=== PATIENT | male | born 1990 | race Caucasian/White ===

== ENCOUNTER 2016-08-03 14:55 | Emergency (ER) | payer OTHER ==
[2016-08-03 15:51] VITALS: BP 137/62
--- NOTE | 2016-08-03 17:24 | UC ---
Dental HPI - HPI Summary HPI Summary: DENTAL PAIN X 4 DAYS SECONDARY TO DENTAL FX AND INFECTION. STARTED ON 1300 MG CLINDA BID. SX WORSE. PAIN INTENSE WORSE WITH CHEWING, HOT, COLD, TOUCH - History of Current Complaint Chief Complaint: UCDentalProblem Stated Complaint: TOOTH PAIN Hx Obtained From: Patient Onset/Duration: Gradual Onset, Lasting Days - 4, Still Present Severity: Moderate Pain Intensity: 7 Pain Scale Used: 0-10 Numeric Aggravating: Heat, Cold, Chewing Alleviating: Topical Meds Related History: Previous Dental Care on Same Tooth, Swelling - Allergies/Home Medications Allergies/Adverse Reactions: Allergies Allergy/AdvReac Type Severity Reaction Status Date / Time Penicillins Allergy Severe Anaphylatic Verified 08/03/16 15:45 Shock Vancomycin Allergy Intermediate Rash Verified 08/03/16 15:45 Home Medications: Home Medications Atenolol TAB* [Tenormin TAB* 25 MG] 25 mg PO DAILY 08/03/16 [History Confirmed 08/03/16] Clindamycin CAP* [Cleocin 150 MG CAP*] 300 mg PO BID 08/03/16 [History Confirmed 08/03/16] DULoxetine DR CAP* [Cymbalta CAP*] 30 mg PO DAILY 08/03/16 [History Confirmed ] Diclofenac Potassium [Zipsor] 75 mg PO BID 08/03/16 [History Confirmed 08/03/16] PMH/Surg Hx/FS Hx/Imm Hx Endocrine History Of: Denies: Diabetes, Thyroid Disease Cardiovascular History Of: Reports: Hypertension Denies: Cardiac Disorders Respiratory History Of: Denies: COPD, Asthma GI/ History Of: Denies: Ulcer - Surgical History Surgical History: None Surgery Procedure, Year, and Place: Right Hand Crush Injury Repair x 3. T&A, Right ankle with steel plate 11 screws on 04/17/2015 - Family History Known Family History: Positive: Diabetes Negative: Cardiac Disease, Hypertension - Social History Lives: With Family Alcohol Use: None Substance Use Type: None Smoking Status (MU): Heavy Every Day Tobacco Smoker Type: Cigarettes Amount Used/How Often: 1/2 - 1 PPD Length of Time of Smoking/Using Tobacco: 8 Years Have You Smoked in the Last Year: Yes Household Exposure Type: Cigarettes Cessation Counseling: Patient Advised to Stop - Immunization History Most Recent Influenza Vaccination: Not the Season Review of Systems Constitutional: Negative Skin: Negative Eyes: Negative ENT: Dental Pain Respiratory: Negative Cardiovascular: Negative Gastrointestinal: Negative Genitourinary: Negative Motor: Negative Neurovascular: Negative Musculoskeletal: Negative Neurological: Negative Psychological: Negative All Other Systems Reviewed And Are Negative: Yes Physical Exam Triage Information Reviewed: Yes Appearance: Well-Appearing, Well-Nourished, Pain Distress - MODERATE Vital Signs: Initial Vital Signs Temp 98.4 F 08/03/16 15:43 Pulse 80 08/03/16 15:43 Resp 18 08/03/16 15:43 BP 137/62 08/03/16 15:43 Pulse Ox 99 08/03/16 15:43 Vital Signs Reviewed: Yes Eyes: Positive: Conjunctiva Clear. Negative: Discharge ENT: Positive: Hearing grossly normal, Pharynx normal, TMs normal. Negative: Tonsillar swelling, Tonsillar exudate, Trismus, Muffled/hoarse voice Dental: Positive: Percussion Tenderness @, Gross Decay/Caries @, Dental Fracture @. Negative: Cellulitis @, Cervical Lymphadenopathy, Bleeding Neck: Positive: Supple, Nontender, No Lymphadenopathy Respiratory: Positive: Lungs clear, Normal breath sounds, No respiratory distress, No accessory muscle use Cardiovascular: Positive: RRR, No Murmur Musculoskeletal Exam: Normal Neurological: Positive: Alert, Muscle Tone Normal Psychological: Positive: Age Appropriate Behavior Skin Exam: Normal Dental Complaint Course/Dx - Differential Dx/Diagnosis Differential Diagnosis/Dx: Dental Abscess, Dental Caries, Fractured Tooth Provider Diagnoses: TOOTHACHE Discharge - Discharge Plan Condition: Stable Disposition: HOME Prescriptions: Clindamycin Cap(NF) [Cleocin 300 mg Cap(NF)] 300 mg PO QID #28 cap HYDROcodone/ACETAMIN 5-325 MG* [[place] 5-325 TAB*] 1 tab PO Q6H PRN #14 tab MDD 4 TABS PRN Reason: Pain Patient Education Materials: Toothache (ED) Referrals: Joon Torrez MD [Primary Care Provider] - 2 Days (Follow up in 2 days for re- evaluation. This follow up visit is important, we want to know that you are improving. If you can not get in with your PCP, return here for re-evaluation. ) Additional Instructions: WE NEED TO INCREASE YOUR DOSAGE OF CLINDAMYCIN. YOU ARE NOT TAKING ENOUGH. STOP YOUR CURRENT MEDS AND START THE NEW SCRIPT FOR ANTIBIOTICS. YOU SHOULD BE TAKING CLINDAMYCIN 300 MG BY MOUTH 4 TIMES DAILY. LET US INCREASE YOUR DOSAGE TO SEE IF THAT TURNS THIS INFECTION AROUND. IF YOU ARE NOT IMPROVING IN 2 DAYS, YOU SHOULD BE SEEN AGAIN. IF YOU GET WORSE BEFORE THEN , IF YOU DEVELOP FEVER, CONFUSION, REDNESS AND SWELLING ON THE FACE OR IF YOU SKIN FEELAS HARD OR SWOLLEN ACROSS THE MIDLINE UNDER YOUR CHIN, YOU SHOULD GO TO THE ED IMMEDIATELY. ANTIBIOTIC THERAPY: You have been given an antibiotic prescription. It's important that you take all the medication, unless instructed otherwise by your physician. Failure to complete the entire course can result in relapse of your condition. Common side effects of antibiotics include nausea, intestinal cramping, or diarrhea. Women may develop vaginal yeast infections, and babies can get yeast (thrush) in the mouth following the use of antibiotics. Contact your physician if you develop significant side effects from this medication. Allergy to this antibiotic can result in hives, wheezing, faintness, or itching. If symptoms of allergy occur, stop the medication and call the doctor. ANY TIME YOU TAKE AN ANTIBIOTIC, IT IS IMPORTANT TO REPLENISH THE BODY'S BALANCE OF "GOOD" BACTERIA BY EATING HIGH QUALITY CULTURED FOOD SUCH YOGURT, SAURKRAUT OR VINEET CHI AND/OR TAKING A PROBIOTIC SUPPLEMENT. ORAL NARCOTIC MEDICATION: You have been given a prescription for pain control. This medication is a narcotic. It's best taken with food, as nausea can result if taken on an empty stomach. Don't operate machinery or drive within six hours of taking this medication. Do not combine this medicine with alcohol, or with any medication which can cause sedation (such as cold tablets or sleeping pills) unless you get permission from the physician. Narcotics tend to cause constipation. If possible, drink plenty of fluids and eat a diet high in fiber and fruits. FOLLOW UP YOU WILL NEED TO FOLLOW UP WITH A DENTIST. PLEASE CALL TOMORROW MORNING TO MAKE AN APPOINTMENT TO BE SEEN BRADLY.
== END 2016-08-03 17:20 | disposition home or self-care (01) ==
LOC: UCCORT 14:55
DX: K08.89 Other specified disorders of teeth and supporting structures (principal); Z88.1 Allergy status to other antibiotic agents; Z88.0 Allergy status to penicillin; F17.210 Nicotine dependence, cigarettes, uncomplicated
CPT/HCPCS: 99212; G0463

== ENCOUNTER 2016-09-25 15:17 | Emergency (ER) | payer OTHER ==
[2016-09-25] MEDS ORDERED: Clindamycin CAP* 150 MG PO ONE (15:56)
--- NOTE | 2016-09-25 16:06 | UC ---
UC Dental HPI - HPI Summary HPI Summary: 26 yo male with tooth ache x 1 day no f/c - History of Current Complaint Chief Complaint: UCDentalProblem Stated Complaint: TOOTH PAIN Time Seen by Provider: 09/25/16 15:48 Hx Obtained From: Patient Onset/Duration: Gradual Onset, Lasting Days Severity: Severe Pain Intensity: 8 Pain Scale Used: 0-10 Numeric Aggravating: Heat, Cold Alleviating: Nothing Related History: Swelling - Allergies/Home Medications Allergies/Adverse Reactions: Allergies Allergy/AdvReac Type Severity Reaction Status Date / Time Penicillins Allergy Severe Anaphylatic Verified 09/25/16 15:46 Shock Vancomycin Allergy Intermediate Rash Verified 09/25/16 15:46 Home Medications: Home Medications Acetaminophen [Tylenol 8 Hour Arthritis] 2 tab PO ONCE 09/25/16 [History Confirmed 09/25/16] PMH/Surg Hx/FS Hx/Imm Hx Previously Healthy: Yes Endocrine History Of: Denies: Diabetes, Thyroid Disease Cardiovascular History Of: Reports: Hypertension Denies: Cardiac Disorders Respiratory History Of: Denies: COPD, Asthma GI/ History Of: Denies: Ulcer - Surgical History Surgical History: Yes Surgery Procedure, Year, and Place: Right Hand Crush Injury Repair x 3. T&A, Right ankle with steel plate 11 screws on 04/17/2015 - Family History Known Family History: Positive: Diabetes Negative: Cardiac Disease, Hypertension - Social History Alcohol Use: Rare Substance Use Type: None Smoking Status (MU): Heavy Every Day Tobacco Smoker Type: Cigarettes Amount Used/How Often: 1/2 - 1 PPD Length of Time of Smoking/Using Tobacco: 8 Years Have You Smoked in the Last Year: Yes Household Exposure Type: Cigarettes - Immunization History Most Recent Influenza Vaccination: none Review of Systems Constitutional: Negative Skin: Negative Eyes: Negative ENT: Dental Pain Respiratory: Negative Cardiovascular: Negative Gastrointestinal: Negative Genitourinary: Negative Motor: Negative Neurovascular: Negative Musculoskeletal: Negative Neurological: Negative Psychological: Negative All Other Systems Reviewed And Are Negative: Yes Physical Exam Triage Information Reviewed: Yes Appearance: Well-Appearing, No Pain Distress, Well-Nourished Vital Signs: Initial Vital Signs Temp 99 F 09/25/16 15:41 Pulse 86 09/25/16 15:41 Resp 17 09/25/16 15:41 BP 154/82 09/25/16 15:41 Pulse Ox 99 09/25/16 15:41 Eye Exam: Normal Eyes: Positive: Conjunctiva Clear ENT: Positive: Hearing grossly normal. Negative: Nasal congestion, Nasal drainage, Trismus, Muffled/hoarse voice Dental: Positive: Gross Decay/Caries @, Other: - abysmal dentition/mulitple caries/gingivitis/gum recession/? abscess Neck: Positive: Supple, Nontender Respiratory: Positive: Lungs clear, Normal breath sounds, No respiratory distress Cardiovascular: Positive: RRR, No Murmur Musculoskeletal: Positive: No Edema, ROM Limited @ - right wirst-surgical scar Neurological: Positive: Alert Psychological Exam: Normal Dental Complaint Course/Dx - Differential Dx/Diagnosis Provider Diagnoses: acute dentalgia Discharge - Discharge Plan Condition: Stable Disposition: HOME Prescriptions: Clindamycin Cap(NF) [Cleocin 300 mg Cap(NF)] 300 mg PO QID #28 cap HYDROcodone/ACETAMIN 5-325 MG* [[place] 5-325 TAB*] 1 tab PO Q4H PRN #15 tab MDD 6 PRN Reason: Pain Patient Education Materials: Toothache (ED) Referrals: Joon Torrez MD [Primary Care Provider] - Additional Instructions: advil to er for new or worsening symptoms you need to see a dentist (next week if possible)
[2016-09-25 16:11] VITALS: BP 154/72
== END 2016-09-25 16:13 | disposition home or self-care (01) ==
LOC: UCCORT 15:17
DX: K08.89 Other specified disorders of teeth and supporting structures (principal); Z88.1 Allergy status to other antibiotic agents; Z88.0 Allergy status to penicillin; F17.210 Nicotine dependence, cigarettes, uncomplicated
CPT/HCPCS: 99211; A9270-GY; G0463

== ENCOUNTER → 2016-10-29 06:29 | Day surgery (SDC) | payer OTHER ==
[~2016-10-29 06:29] MED LIST: Atracurium* 10 MG/ML 10 ML VIAL ONE; Buffered Lidocaine 1% SYRIN* 3 ML/SYR SYRINGE INTRADERM ONE; Bupivacaine 0.25% SDV* 30 ML ONE; Bupivacaine 0.5% SDV PF* 30 ML VIAL ONE; Clindamycin 900 MG IVPREMIX(* 900 MG/50 ML SDV IV ONE; Dexamethasone IV* 4 MG/ML 1 ML (4 MG) IV SLOW PU ONE; Dexamethasone IV* 4 MG/ML 1 ML (4 MG) ONE; DiMENhydriNATE IV* 50 MG/ML VIAL IV PUSH PRN; Famotidine IV* 10 MG/ML 2 ML (20 mg) IV ONE; Famotidine IV* 10 MG/ML 2 ML (20 mg) ONE; Glycopyrrolate IV* 0.2 MG/ML 1 ML VIAL ONE; HYDROcodone/ACETAMIN 5-325 MG* 1 TAB ONE; HYDROmorphone* 1 MG/ML 1 ML SYR ONE; Ketorolac INJ* 30 MG/ML 1 ML VIAL ONE; Levalbuterol 0.63MG/3ML NEB INH ONE; Levalbuterol 1.25MG/0.5ML NEB ONE; Lidocaine 1% INJ* 10 MG/ML 30 ML SDV ONE; Lidocaine 2% PF* 5 ML VIAL ONE; Midazolam* 1 MG/ML 5 ML VIAL (5 MG) ONE; Ondansetron INJ* 2 MG/ML VIAL IV PRN; Ondansetron INJ* 2 MG/ML VIAL ONE; Propofol* 10 MG/ML 20 ML BTL IV PUSH ONE; Scopolamine 1.5 mg* PATCH TRANSDERM PRN; Scopolomine PATCH Remove* 1 NOTE MISC PATCH OFF ONE; fentaNYL* 50 MCG/ML 2 ML VIAL (100 MCG VIAL) ONE; fentaNYL* 50 MCG/ML 5 ML VIAL (250 MCG VIAL) ONE; oxyCODONE/Acetamin 5/325 MG* TAB PO PRN
[2016-10-29] MEDS: fentaNYL* 50 MCG/ML 2 ML VIAL (100 MCG VIAL) IV PRN ×2 (13:38→13:44)
[2016-10-29] MEDS: HYDROmorphone* 1 MG/ML 1 ML SYR IV PRN ×2 (13:53→14:04)
[2016-10-29 15:10] VITALS: BP 166/72
--- NOTE | 2016-10-30 12:30 | OP ---
DATE OF OPERATION: 10/29/16 - [facility] DATE OF : 89 SURGEON: Jhony May MD METAL MOULDER'S ASSISTANT: MARIA E De La Fuente ANESTHESIOLOGIST: Dr. Sal. ANESTHESIA: General. PRE-OP DIAGNOSIS: Degenerative joint disease right second, third, and fourth carpometacarpal joints, status post prior failed attempted fusion of the joints that was complicated by infection necessitating pin removal multiple years ago. POST-OP DIAGNOSIS: Degenerative joint disease right second, third, and fourth carpometacarpal joints, status post prior failed attempted fusion of the joints that was complicated by infection necessitating pin removal multiple years ago. PROCEDURE PERFORMED: 1. Right second carpometacarpal bone block arthrodesis with autogenous distal radius bone block autograft. 2. Right third carpometacarpal bone block arthrodesis with autogenous distal radius cortical cancellous bone autograft. 3. Right fourth carpometacarpal bone block arthrodesis with autogenous distal radius cortical cancellous autograft. 3. Scar revision right dorsal hand and wrist, 10 cm. INDICATIONS: Frandy is a 26-year-old male who, many years ago, had an injury that was left untreated and developed posttraumatic arthrosis and significant pain in the right mid hand in the area of the carpometacarpal joint. He, many years ago, had an attempted fusion of the joints. He showed me pictures in the office on his cell phone with pins going to the second, third and fourth carpometacarpal joints. Unfortunately, this was complicated rather acutely within about a week to two weeks by significant infection. This necessitated pin removal and a couple of I and Ds and antibiotics and then the infection completely cleared and he has had no further issues with infection in the hand for many years. He has since had subsequent orthopedic procedures and has had metal plate put in his ankle. He has had no issues with infection. I had gotten preoperative labs, which showed no elevation in the inflammatory markers. Preop CT showed significant degenerative joint disease of the second, third, and fourth carpometacarpal joints. He has been having debilitating hand pain for many years and it is making it difficult for him to work and do other activities. He presented to my office and we had a nice discussion of risks and benefits including the risk of infection and also a risk of pseudo- arthrosis and failure of the fusion and persistent pain. I had told him that by the time I debrided back the eburnated and sclerotic bony edges at the base of the metacarpal and on the distal carpus that we are probably left with a decent gap and that may necessitate significant distal radius autograft in the form of cortical cancellous strut grafts of a dowel type. I told him I may have to take graft from both wrists in order to get adequate graft. I talked to him about the option of iliac crest bone graft, but he preferred using distal radius bone graft and I did as well. ESTIMATED BLOOD LOSS: 30 mL. COMPLICATIONS: None. FINDINGS: As expected. DESCRIPTION OF PROCEDURE: Frandy was seen in the preoperative holding area and the correct site and side of the procedure were identified. We came back to the operating room where anesthesia was induced. T he arm was prepped and draped in the usual fashion. A formal time-out was performed. I went ahead and ellipsed out his prior dorsal skin incision, which was in line with the third metacarpal coming down towards Rola's tubercle. This was a little over 10 cm in length. A full-thickness excision of the scar was performed down through the dermis to the subcutaneous tissue. I then continued the dissection down through the scar tissue dissecting longitudinally to protect any traversing dorsal sensory nerves. The extensor retinaculum was encountered and full-thickness flaps were raised off the extensor retinaculum radially and ulnarly and then continued on distally, in similar fashion full- thickness flaps were raised right off the paratenon. I then went ahead and created an interval between the second and fourth dorsal compartment tendons. Dissection was carried out sharpy along the second metacarpal shaft over the carpometacarpal joint down onto the trapezoid. I then in similar fashion developed interval between the fourth and the fifth and then the fifth and the sixth to expose the third and fourth carpometacarpal joints respectively. Full- thickness flaps were raised exposing the joints. The C-arm was used to guidance in our identifying the carpometacarpal joints. Once I had the joints exposed, I brought in the sagittal saw and took about 2 mm off the end of each metacarpal base. In similar fashion, I did the same thing with the distal trapezoid, distal capitate and the radial portion of the hamate that articulated with the fourth metacarpal. There was quite a bit of urination, the worst of which was in the third carpo-metacarpal joint. I was starting to get back to cancellus bone though. At this point, I brought in the savannah and finished off my preparation of the joint surfaces. I had to take a little bit more off to get back to good healthy bleeding bone. I created a little trough in the base of each metacarpal and in each distal carpus to receive the cortical cancellous strut graft. At this point, I irrigated out the wound and turned my attention to the distal radius. I went ahead and opened the right third extensor compartment and subperiosteally freed up the soft tissue off Rola's tubercle. I brought in the small drill bit and drilled out a little rectangle and completed the release of the cortex with the osteotome. Full- thickness nice rectangular cortical cancellous graft was harvested. I went ahead and took part of this and contoured it and placed it between the second metacarpal and the trapezoid. I then took the rest and placed it between the third metacarpal and the capitate in similar fashion. At this point, I did not want to take anymore bone graft from the right, so I went to the left and exposed the third dorsal compartments in similar fashion, released the EPL tendon and subperiosteally took up the soft tissue off Rola's tubercle. Cortical cancellous rectangular graft was harvested. This was contoured and placed between the fourth metacarpal base and the distal capitate and hamate. I had harvested plenty of medullary bone along with my strut graft. This was set aside. I brought in the C-arm and checked my alignment. I had absolutely great stability and compression just with a little dowel graft along each of the carpometacarpal joints. At this point, I went ahead and took three 2.0 mm Synthes variable angle hand plates and contoured them. I placed the first plate on the second carpometacarpal fusion and secured it with a couple of variable angle locking screws proximally and some cortical screws distally. In similar fashion, I contoured, placed and secured the plates on the third carpometacarpal arthrodesis and the fourth carpometacarpal arthrodesis. I checked the fluoroscopy for screw length, plate positions, and everything looked very good. At this point, I went ahead and took all of my distal radius cancellous bone graft impacted into each of the arthrodesis sites. I got excellent fill of all of the bony gaps. I took a final fluoroscopic image and everything looked very nice. At this point, I went ahead and took some 3-0 Polysorb and closed the deep periosteum and fascial layer between the plates and the tendons. The coverage was actually pretty nice. At this point, I went ahead and irrigated the wound copiously. The extensor retinaculum was closed with some 4-0 Prolene suture. I then reapproximated the skin with some 3-0 Polysorb and closed it with some 4-0 nylon. On the contralateral side, I went ahead and nipped off any bony edges just to fully excise Rola's tubercle. I then went ahead and transposed the EPL tendon just to prevent any subsequent rupture. I then closed the extensor retinaculum with some 4-0 Prolene suture. The skin was reapproximated with a 3-0 Polysorb and closed with some 4-0 nylon. Please note that tourniquet had been inflated prior to making incision on the right. It was deflated while I was harvesting the left distal radius bone graft , at which time the tourniquet was inflated on the left. It was deflated after I had taken the bone graft. I had a tourniquet holiday of about 20 minutes and then I re-exsanguinated and reinflated the tourniquet on the right prior to resuming work on the right wrist. After closing the skin, I infiltrated all the wounds with 0.25% Marcaine. The incisions were dressed with Xeroform, 4x4's , sterile Webril, and then on the right a short-arm volar splint was placed going out to the PIP joints. On the left, the wound was dressed just with a soft dressing. Tourniquet was deflated on the right after the splint was placed. He was then taken to the recovery room in stable condition. [id number]/[facility] #: [id number] DENISE
--- NOTE | 2016-10-30 15:28 | RAD ---
INDICATION: Right hand surgery. COMPARISON: Correlation is made with a prior CT of the right hand from October 15, 2016. TECHNIQUE: 10 minutes and 58 seconds of intermittent fluoroscopic guidance were provided and 7 spot films of the right hand were obtained in the operating room. FINDINGS: The films demonstrate placement of surgical plates along the dorsal aspect of the second, third and fourth carpometacarpal joints transfixed with multiple screws. There are also osteotomies of the second, third and fourth proximal metacarpals. IMPRESSION: INTRAOPERATIVE CONTROL FILMS. CPT II Codes: 6045F
== END | disposition home or self-care (01) ==
LOC: OREAST 06:29
PROVIDERS: ATTEND Orthopaedic Surgery Hand Surgery
DX: M19.141 Post-traumatic osteoarthritis, right hand (principal); F17.210 Nicotine dependence, cigarettes, uncomplicated; I10 Essential (primary) hypertension; L91.0 Hypertrophic scar
CPT/HCPCS: 76000; 87070; 87073; 87205; 88304; 88311; A9270-GY; J1100; J1170; J1885; J2001; J2250; J2405; J2704; J3010

== ENCOUNTER 2017-01-18 11:20 | Emergency (ER) | payer OTHER ==
[2017-01-18 11:40] VITALS: BP 142/65
--- NOTE | 2017-01-18 12:15 | UC ---
Dental HPI - HPI Summary HPI Summary: R lower teeth have been broken for several months, started hurting about 6 days ago. Has been trying topical meds with only mild relief. Wants to make apt with [facility] dentist in [place] who runs a sliding scale dental clinic, but was told he needs to be on abx before they'll make an appointment. Denies fever or drainage. - History of Current Complaint Chief Complaint: UCDentalProblem Stated Complaint: ORAL/DENTAL COMPLAINT Time Seen by Provider: 01/18/17 11:56 Hx Obtained From: Patient Onset/Duration: Gradual Onset, Lasting Days Severity: Moderate Aggravating: Heat, Cold, Chewing - Allergies/Home Medications Allergies/Adverse Reactions: Allergies Allergy/AdvReac Type Severity Reaction Status Date / Time Penicillins Allergy Severe Anaphylatic Verified 01/18/17 11:34 Shock Vancomycin Allergy Intermediate Rash Verified 01/18/17 11:34 Home Medications: Home Medications DULoxetine DR CAP* [Cymbalta CAP*] 60 mg PO DAILY 01/18/17 [History Confirmed ] PMH/Surg Hx/FS Hx/Imm Hx Previously Healthy: Yes - Surgical History Surgical History: Yes Surgery Procedure, Year, and Place: Left Wrist Bone Graft; Right Hand Crush Injury Repair x 5. T&A. Right ankle with steel plate 11 screws on 04/17/2016 - Family History Known Family History: Positive: Diabetes Negative: Cardiac Disease, Hypertension - Social History Alcohol Use: Occasionally Substance Use Type: None Smoking Status (MU): Heavy Every Day Tobacco Smoker Type: Cigarettes Amount Used/How Often: 1/2+ PPD Length of Time of Smoking/Using Tobacco: Since Age 18 Have You Smoked in the Last Year: Yes Household Exposure Type: Cigarettes - Immunization History Most Recent Influenza Vaccination: "I don't get the flu shot." Most Recent Tetanus Shot: 2014 Review of Systems Constitutional: Negative Skin: Negative Eyes: Negative ENT: Dental Pain Respiratory: Negative Cardiovascular: Negative Gastrointestinal: Negative Genitourinary: Negative Motor: Negative Neurovascular: Negative Musculoskeletal: Negative Neurological: Negative Psychological: Negative All Other Systems Reviewed And Are Negative: Yes Physical Exam Triage Information Reviewed: Yes Appearance: Well-Appearing, No Pain Distress, Well-Nourished Vital Signs: Initial Vital Signs Temp 98.7 F 01/18/17 11:32 Pulse 80 01/18/17 11:32 Resp 16 01/18/17 11:32 BP 142/65 01/18/17 11:32 Pulse Ox 98 01/18/17 11:32 Vital Signs Reviewed: Yes Eye Exam: Normal Eyes: Positive: Conjunctiva Clear ENT Exam: Normal ENT: Positive: Normal ENT inspection, Hearing grossly normal, Pharynx normal, TMs normal Dental: Positive: Gross Decay/Caries @ - #5-6, Dental Fracture @ - #5-6 Neck exam: Normal Neck: Positive: Supple, Nontender, No Lymphadenopathy Respiratory Exam: Normal Respiratory: Positive: Chest non-tender, Lungs clear, Normal breath sounds, No respiratory distress, No accessory muscle use Cardiovascular Exam: Normal Cardiovascular: Positive: RRR, No Murmur Musculoskeletal Exam: Normal Neurological Exam: Normal Neurological: Positive: Alert Psychological Exam: Normal Skin Exam: Normal Dental Complaint Course/Dx - Differential Dx/Diagnosis Provider Diagnoses: toothaches #5-6. dental fractures #5-6 Discharge - Discharge Plan Condition: Stable Disposition: HOME Prescriptions: Clindamycin Cap(NF) [Cleocin 300 mg Cap(NF)] 300 mg PO TID #30 cap Diclofenac Sodium EC TAB* [Voltaren EC TAB*] 50 mg PO TID PRN #30 tab PRN Reason: Fever, Inflammation, or Pain HYDROcodone/ACETAMIN 5-325 MG* [[place] 5-325 TAB*] 1 tab PO Q6H PRN #8 tab MDD 4 PRN Reason: Pain Patient Education Materials: Toothache (ED) Referrals: Joon Torrez MD [Primary Care Provider] - Additional Instructions: As you know, the only thing that will help with your pain is getting dental care. Please make an appointment with your dentist as soon as they will make it.
== END 2017-01-18 12:15 | disposition home or self-care (01) ==
LOC: UCCORT 11:20
DX: K08.89 Other specified disorders of teeth and supporting structures (principal); K03.81 Cracked tooth; Z88.1 Allergy status to other antibiotic agents; Z88.0 Allergy status to penicillin; F17.210 Nicotine dependence, cigarettes, uncomplicated
CPT/HCPCS: 99212; G0463

== ENCOUNTER 2017-04-16 14:04 | Emergency (ER) | payer OTHER ==
[2017-04-16 14:52] VITALS: BP 140/69
--- NOTE | 2017-04-16 15:55 | UC ---
Dental HPI - HPI Summary HPI Summary: SIX MONTHS OF INTERMITTENT DENTAL PAIN IN RIGHT LOWER JAW, WHERE TOOTH WAS FRACTURED LAST YEAR. SEEN HERE (12/16/15, 08/03/16, 09/25/16, 01/18/17) SEVERAL TIMES FOR SAME COMPLAINT. NO DISCHARGE. NO FEVER. - History of Current Complaint Chief Complaint: UCDentalProblem Stated Complaint: TOOTHACHE Time Seen by Provider: 04/16/17 14:41 Hx Obtained From: Patient Onset/Duration: Gradual Onset, Lasting Weeks - >ONE YEAR, Worse Since - LAST TWO DAYS Severity: Moderate Pain Intensity: 8 Pain Scale Used: 0-10 Numeric Aggravating: Chewing Related History: Previous Dental Care on Same Tooth - Allergies/Home Medications Allergies/Adverse Reactions: Allergies Allergy/AdvReac Type Severity Reaction Status Date / Time Penicillins Allergy Severe Anaphylatic Verified 04/16/17 14:44 Shock Vancomycin Allergy Intermediate Rash Verified 04/16/17 14:44 Home Medications: Home Medications Atenolol TAB* [Tenormin TAB* 50 MG] 1 tab DAILY 04/16/17 [History Confirmed ] cloNIDine TAB* [Catapres 0.1 MG TAB*] 1 tab BEDTIME 04/16/17 [History Confirmed 04/16/17] PMH/Surg Hx/FS Hx/Imm Hx Previously Healthy: Yes - Surgical History Surgical History: Yes Surgery Procedure, Year, and Place: Left Wrist Bone Graft; Right Hand Crush Injury Repair x 5. T&A. Right ankle with steel plate 11 screws on 04/17/2016 - Family History Known Family History: Positive: Diabetes Negative: Cardiac Disease, Hypertension - Social History Occupation: Employed Full-time Lives: With Family Alcohol Use: None Substance Use Type: None Smoking Status (MU): Heavy Every Day Tobacco Smoker Type: Cigarettes Amount Used/How Often: 1/2+ PPD Length of Time of Smoking/Using Tobacco: Since Age 18 Have You Smoked in the Last Year: Yes Household Exposure Type: Cigarettes Cessation Counseling: Patient Advised to Stop - Immunization History Most Recent Influenza Vaccination: NONE 2017 Most Recent Tetanus Shot: 2014 Review of Systems Constitutional: Negative Skin: Negative Eyes: Negative ENT: Dental Pain Respiratory: Negative Cardiovascular: Negative Gastrointestinal: Negative Genitourinary: Negative Motor: Negative Neurovascular: Negative Musculoskeletal: Negative Neurological: Negative Psychological: Negative Is Patient Immunocompromised?: No All Other Systems Reviewed And Are Negative: Yes Physical Exam Triage Information Reviewed: Yes Appearance: Well-Appearing, No Pain Distress, Well-Nourished Vital Signs: Initial Vital Signs Temp 98 F 04/16/17 14:45 Pulse 73 04/16/17 14:45 Resp 18 04/16/17 14:45 BP 140/69 04/16/17 14:45 Pulse Ox 99 04/16/17 14:45 Vital Signs Reviewed: Yes Eye Exam: Normal ENT Exam: Normal ENT: Positive: Normal ENT inspection, Hearing grossly normal, Pharynx normal, TMs normal Dental: Positive: Dental Fracture @ - 30 Neck exam: Normal Neck: Positive: Supple, Nontender, No Lymphadenopathy Respiratory Exam: Normal Respiratory: Positive: Chest non-tender, Lungs clear, Normal breath sounds, No respiratory distress, No accessory muscle use Cardiovascular Exam: Normal Cardiovascular: Positive: RRR, No Murmur, Pulses Normal, Brisk Capillary Refill Abdominal Exam: Normal Musculoskeletal Exam: Normal Musculoskeletal: Positive: Strength Intact, ROM Intact Neurological Exam: Normal Psychological Exam: Normal Skin Exam: Normal Dental Complaint Course/Dx - Differential Dx/Diagnosis Differential Diagnosis/Dx: Fractured Tooth, Odontogenic Pain Provider Diagnoses: FRACTURED TOOTH #30, ODONTOGENIC PAIN Discharge - Discharge Plan Condition: Stable Disposition: HOME Prescriptions: Clindamycin Cap(NF) [Clindamycin Cap 300 mg Cap(NF)] 300 mg PO TID #30 cap Ketorolac TAB * [Toradol TAB *] 10 mg PO Q8H #12 tab Magic Mouth Was-GRISEL/MAAL/LIDO* 5 ml SWISH SPIT QID #80 ml Patient Education Materials: Toothache (ED) Referrals: Joon Torrez MD [Primary Care Provider] - Images Dental: 1 - GROSS DECAY HERE
== END 2017-04-16 15:22 | disposition home or self-care (01) ==
LOC: UCCORT 14:04
DX: S02.5XXA Fracture of tooth (traumatic), initial encounter for closed fracture (principal); F17.210 Nicotine dependence, cigarettes, uncomplicated; X58.XXXA Exposure to other specified factors, initial encounter; Y92.9 Unspecified place or not applicable; Z88.0 Allergy status to penicillin; Z88.1 Allergy status to other antibiotic agents; Z71.6 Tobacco abuse counseling
CPT/HCPCS: 99212; G0463

== ENCOUNTER 2017-07-20 10:49 | Emergency (ER) | payer OTHER ==
[2017-07-20 11:23] VITALS: BP 158/69
--- NOTE | 2017-07-20 14:04 | UC ---
UC General HPI - HPI Summary HPI Summary: Pleasant 27 yo gentleman presents with c/o fever / rodríguez / cough, sore throat x approx 2 days. No rash. Unk sick contact. + GI upset (diarrhea, but no vomit reported). Has not yet had influenza vaccine. - History of Current Complaint Chief Complaint: UCGeneralIllness Stated Complaint: ST,COUGH Time Seen by Provider: 07/20/17 11:34 Hx Obtained From: Patient Pain Intensity: 7 - Allergy/Home Medications Allergies/Adverse Reactions: Allergies Allergy/AdvReac Type Severity Reaction Status Date / Time Penicillins Allergy Severe Anaphylatic Verified 07/20/17 11:23 Shock Vancomycin Allergy Intermediate Rash Verified 07/20/17 11:23 PMH/Surg Hx/FS Hx/Imm Hx Previously Healthy: Yes - Surgical History Surgical History: Yes Surgery Procedure, Year, and Place: Left Wrist Bone Graft; Right Hand Crush Injury Repair x 5. T&A. Right ankle with steel plate 11 screws on 04/17/2016 - Family History Known Family History: Positive: Diabetes Negative: Cardiac Disease, Hypertension - Social History Alcohol Use: None Substance Use Type: None Smoking Status (MU): Heavy Every Day Tobacco Smoker Type: Cigarettes Amount Used/How Often: 1/2+ PPD Length of Time of Smoking/Using Tobacco: Since Age 18 Have You Smoked in the Last Year: Yes Household Exposure Type: Cigarettes - Immunization History Most Recent Influenza Vaccination: NONE 2017 Most Recent Tetanus Shot: 2014 Review of Systems Constitutional: Fever Skin: Negative Eyes: Negative ENT: Sore Throat, Sinus Congestion Respiratory: Cough Cardiovascular: Negative Gastrointestinal: Diarrhea Genitourinary: Negative Motor: Negative Neurovascular: Negative Musculoskeletal: Negative Neurological: Negative Psychological: Negative Is Patient Immunocompromised?: No All Other Systems Reviewed And Are Negative: Yes Physical Exam Triage Information Reviewed: Yes Appearance: Well-Nourished - nontoxic appearance. Looks tired. NAD. sitting up. Vital Signs: Initial Vital Signs Temp 99.4 F 07/20/17 11:19 Pulse 78 07/20/17 11:19 Resp 18 07/20/17 11:19 BP 158/69 07/20/17 11:19 Pulse Ox 98 07/20/17 11:19 Vital Signs Reviewed: Yes Eye Exam: Normal - grossly normal ENT: Positive: Pharyngeal erythema - uvula midline. No sores appreciated., Nasal congestion, TM dull - tm dull au Neck exam: Normal Neck: Positive: Supple, Nontender Respiratory Exam: Other - BS equal, +rhonchorus cough. + scattered exp wheeze bibas. No exp muscle use. Respiratory: Positive: Wheezing Cardiovascular Exam: Normal Cardiovascular: Positive: RRR, No Murmur, Pulses Normal, Brisk Capillary Refill Abdominal Exam: Normal Abdomen Description: Positive: Nontender - sitting up. soft. BS present, slightly increased. Musculoskeletal Exam: Normal - moves all 4 ext's. Gait steady. Neurological Exam: Normal - grossly nonfocal Psychological Exam: Normal - conversing easily and appropriately. Skin Exam: Normal - nondiaphoretic. no visible or reported rash Course/Dx - Course Course Of Treatment: RST neg. Infl A/B neg. D/w pt s/sx. Questions as posed answered to the best of my ability. - Differential Dx - Multi-Symptom Provider Diagnoses: Acute bronchitis with wheezing. Discharge - Discharge Plan Condition: Stable Disposition: HOME Prescriptions: Albuterol HFA INHALER* [Ventolin HFA Inhaler*] 1 - 2 puff INH Q4H PRN #1 mdi PRN Reason: Wheezing Azithromyxin SIRI (NF) [Z-Siri (Zithromax) 250 mg tabs #6] 2 tab PO .TODAY, THEN 1 DAILY #6 tab Forms: *Work Release Referrals: Joon Torrez MD [Primary Care Provider] - Additional Instructions: Influenza A/B negative Strep test negative. Consider over the counter Probiotic (per packaging instructions). Follow up primary care physician, per routine. Seek medical attention for worse or new problems in the meantime.
== END 2017-07-20 13:47 | disposition home or self-care (01) ==
LOC: UCCORT 10:49
DX: J20.9 Acute bronchitis, unspecified (principal); R06.2 Wheezing; Z88.3 Allergy status to other anti-infective agents; Z88.0 Allergy status to penicillin; Z87.891 Personal history of nicotine dependence
CPT/HCPCS: 87502; 87651; 99212; G0463

== ENCOUNTER 2017-11-24 19:34 | Emergency (ER) | payer OTHER ==
[2017-11-24 20:00] VITALS: BP 151/75
--- NOTE | 2017-11-24 20:19 | UC ---
Back Pain HPI - HPI Summary HPI Summary: 27 yo male was helping his mother move a piano 1 week ago sudden onset mid thoracic pain hurts to take a deep breath in had a massage now pain has moved into neck no paresthesias or weakness no rodríguez - History of Current Complaint Chief Complaint: UCBackPain Stated Complaint: BACK INJURY Time Seen by Provider: 11/24/17 20:11 Hx Obtained From: Patient Onset/Duration: Sudden Onset, Lasting Days Timing: Constant Severity Initially: Moderate Severity Currently: Moderate Pain Intensity: 7 Pain Scale Used: 0-10 Numeric Back Pain: Is Discrete @, Radiates To - neck Character: Sharp, Dull, Aching, Throbbing Aggravating Factor(s): Movement Alleviating Factor(s): Rest, OTC Meds Associated Signs And Symptoms: Positive: Negative - Allergies/Home Medications Allergies/Adverse Reactions: Allergies Allergy/AdvReac Type Severity Reaction Status Date / Time Penicillins Allergy Anaphylatic Verified 11/24/17 20:02 Shock vancomycin Allergy See Comment Verified 11/24/17 20:02 Home Medications: Home Medications Acetaminophen TAB* [Tylenol TAB*] 975 mg PO Q4H PRN 11/24/17 [History Confirmed 11/24/17] DULoxetine DR CAP* [Cymbalta CAP*] 60 mg PO BID 11/24/17 [History Confirmed ] Ibuprofen TAB* [Advil TAB*] 600 mg PO Q6H PRN 11/24/17 [History Confirmed ] PMH/Surg Hx/FS Hx/Imm Hx Previously Healthy: Yes - Surgical History Surgical History: Yes Surgery Procedure, Year, and Place: Left Wrist Bone Graft; Right Hand Crush Injury Repair x 5. T&A. Right ankle with steel plate 11 screws on 04/17/2016 - Family History Known Family History: Positive: Diabetes Negative: Cardiac Disease, Hypertension - Social History Alcohol Use: Weekly Substance Use Type: None Smoking Status (MU): Light Every Day Tobacco Smoker Type: Cigarettes Amount Used/How Often: 1/2+ PPD Length of Time of Smoking/Using Tobacco: Since Age 18 Have You Smoked in the Last Year: Yes Household Exposure Type: Cigarettes - Immunization History Most Recent Influenza Vaccination: NONE 2016 Most Recent Tetanus Shot: 2014 Review of Systems Constitutional: Negative Skin: Negative Eyes: Negative ENT: Negative Respiratory: Negative Cardiovascular: Negative Gastrointestinal: Negative Genitourinary: Negative Motor: Negative Neurovascular: Negative Musculoskeletal: Arthralgia, Myalgia Neurological: Negative Psychological: Negative Is Patient Immunocompromised?: No All Other Systems Reviewed And Are Negative: Yes Physical Exam Triage Information Reviewed: Yes Appearance: Well-Appearing, No Pain Distress, Well-Nourished Vital Signs: Initial Vital Signs Temp 98.1 F 11/24/17 19:53 Pulse 100 11/24/17 19:53 Resp 18 11/24/17 19:53 BP 151/75 11/24/17 19:53 Pulse Ox 100 11/24/17 19:53 Vital Signs Reviewed: Yes Eyes: Positive: Conjunctiva Clear ENT: Positive: Uvula midline. Negative: Nasal congestion, Nasal drainage, Trismus, Muffled voice, Hoarse voice Neck: Positive: Supple, No Lymphadenopathy, Tenderness @ Respiratory: Positive: Lungs clear, Normal breath sounds, No respiratory distress, No accessory muscle use Cardiovascular: Positive: RRR, No Murmur Musculoskeletal: Positive: No Edema, ROM Limited @ - right wrist ORIF Neurological: Positive: Alert Psychological Exam: Normal Skin Exam: Normal Back Pain Course/Dx - Course Course Of Treatment: Reference #: [id number]. he decline PT consult at this point - Differential Dx/Diagnosis Provider Diagnoses: thoracic strain. cervical strain Discharge - Sign-Out/Discharge Documenting (check all that apply): Discharge/Admit/Transfer - Discharge Plan Condition: Stable Disposition: HOME Prescriptions: Cyclobenzaprine TAB* [Flexeril TAB*] 5 - 10 mg PO TID PRN #15 tab PRN Reason: Spasms HYDROcodone/ACETAMIN 5-325 MG* [[place] 5-325 TAB*] 1 tab PO Q4H PRN #6 tab MDD 4 PRN Reason: Pain Patient Education Materials: Cervical Strain (ED), Thoracic Pain (ED) Referrals: Joon Torrez MD [Primary Care Provider] - If Needed - Billing Disposition and Condition Condition: STABLE Disposition: HOME Images Head: 1 - pain Front/Back of Body, Lg ([place]): 1 - pain
== END 2017-11-24 20:35 | disposition home or self-care (01) ==
LOC: UCCORT 19:34
DX: S29.012A Strain of muscle and tendon of back wall of thorax, initial encounter (principal); S16.1XXA Strain of muscle, fascia and tendon at neck level, initial encounter; X58.XXXA Exposure to other specified factors, initial encounter; Y92.9 Unspecified place or not applicable; F17.210 Nicotine dependence, cigarettes, uncomplicated; Z88.0 Allergy status to penicillin; Z88.3 Allergy status to other anti-infective agents
CPT/HCPCS: 99212; G0463

== ENCOUNTER 2017-12-16 06:35 | Day surgery (SDC) | payer OTHER ==
[~2017-12-16 06:35] MED LIST changes: -Atracurium* 10 MG/ML 10 ML VIAL ONE; +Buffered Lidocaine 0.9% SYRIN* 5 ML/SYR SYRINGE INTRADERM ONE; -Buffered Lidocaine 1% SYRIN* 3 ML/SYR SYRINGE INTRADERM ONE; -Bupivacaine 0.25% SDV* 30 ML ONE; -Bupivacaine 0.5% SDV PF* 30 ML VIAL ONE; -Clindamycin 900 MG IVPREMIX(* 900 MG/50 ML SDV IV ONE; -DiMENhydriNATE IV* 50 MG/ML VIAL IV PUSH PRN; -Glycopyrrolate IV* 0.2 MG/ML 1 ML VIAL ONE; -HYDROcodone/ACETAMIN 5-325 MG* 1 TAB ONE; -HYDROmorphone* 1 MG/ML 1 ML SYR ONE; -Ketorolac INJ* 30 MG/ML 1 ML VIAL ONE; -Levalbuterol 0.63MG/3ML NEB INH ONE; -Levalbuterol 1.25MG/0.5ML NEB ONE; -Lidocaine 1% INJ* 10 MG/ML 30 ML SDV ONE; -Lidocaine 2% PF* 5 ML VIAL ONE; -Midazolam* 1 MG/ML 5 ML VIAL (5 MG) ONE; -Ondansetron INJ* 2 MG/ML VIAL IV PRN; -Ondansetron INJ* 2 MG/ML VIAL ONE; -Propofol* 10 MG/ML 20 ML BTL IV PUSH ONE; -Scopolamine 1.5 mg* PATCH TRANSDERM PRN; -Scopolomine PATCH Remove* 1 NOTE MISC PATCH OFF ONE; -fentaNYL* 50 MCG/ML 2 ML VIAL (100 MCG VIAL) ONE; -fentaNYL* 50 MCG/ML 5 ML VIAL (250 MCG VIAL) ONE; -oxyCODONE/Acetamin 5/325 MG* TAB PO PRN
[2017-12-16] MEDS ORDERED: Clindamycin 900 MG IVPREMIX(* 900 MG/50 ML SDV IV ONE (06:52)
[2017-12-16] MEDS ORDERED: fentaNYL* 50 MCG/ML 5 ML VIAL (250 MCG VIAL) ONE (07:15)
[2017-12-16] MEDS ORDERED: Lidocaine 2% PF * 5 ML VIAL ONE (07:15)
[2017-12-16] MEDS ORDERED: Midazolam* 1 MG/ML 5 ML VIAL (5 MG) ONE (07:15)
[2017-12-16] MEDS ORDERED: Propofol* 10 MG/ML 20 ML BTL IV PUSH ONE (07:15)
[2017-12-16] MEDS ORDERED: EPHEDrine (Pressors)* 50 MG/ML VIAL ONE (08:18)
[2017-12-16] MEDS ORDERED: Bupivacaine 0.25% SDV* 30 ML ONE ×2 (08:19→11:14)
[2017-12-16] MEDS ORDERED: HYDROcodone/ACETAMIN 5-325 MG* 1 TAB PO PRN (08:41)
[2017-12-16] MEDS ORDERED: Naloxone* 0.4 MG/ML 1 ML VIAL IV PRN (08:41)
[2017-12-16] MEDS ORDERED: oxyCODONE/Acetamin 5/325 MG* TAB PO PRN (08:41)
[2017-12-16] MEDS ORDERED: DiMENhydriNATE IV* 50 MG/ML VIAL IV PUSH PRN (08:41)
[2017-12-16] MEDS ORDERED: fentaNYL* 50 MCG/ML 2 ML VIAL (100 MCG VIAL) ONE ×4 (10:31→13:51)
[2017-12-16] MEDS ORDERED: Lidocain 1% EPI 1:100,000 * 30 ML MDV ONE (11:33)
[2017-12-16] MEDS ORDERED: Ondansetron INJ* 2 MG/ML VIAL ONE (11:43)
[2017-12-16] MEDS ORDERED: Ketorolac INJ* 30 MG/ML 1 ML VIAL ONE (12:13)
[2017-12-16] MEDS ORDERED: Petrolatum 5 GM* 5 GM PACKET ONE (13:26)
[2017-12-16] MEDS: fentaNYL* 50 MCG/ML 2 ML VIAL (100 MCG VIAL) IV PRN ×2 (13:55→14:15)
[2017-12-16] MEDS ORDERED: HYDROcodone/ACETAMIN 5-325 MG* 1 TAB ONE (14:32)
[2017-12-16 15:10] VITALS: BP 158/88
--- NOTE | 2017-12-17 05:29 | OP ---
DATE OF OPERATION: 12/16/17 [facility] DATE OF : 89 SURGEON: Jhony May MD BLOWER MECHANIC SURGEON: Jose Luis Washington MD. An electrician's assistant surgeon was needed for the case due to complexity of the case. Also assisted by MARIA E Yanez. BLOWER MECHANIC: MARIA E Yanez ANESTHESIOLOGIST: Magali Griffin MD ANESTHESIA: General. 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 OPERATIVE PROCEDURE: 1. Revision right third carpometacarpal joint fusion with left iliac crest bone graft. 2. Revision right fourth carpometacarpal revision fusion with left iliac crest bone graft. 3. Removal of hardware, third and fourth carpometacarpal, removal of 2 plates and screws, 1 over the third carpometacarpal joint and 1 over the fourth. 4. Right capitolunate fusion with iliac crest bone graft. INDICATIONS: Frandy is 27 years old. He has for quite been some time had issues with the right hand. His issues started clear back in 2009 when he had an injury while he was in the , what sounded like potentially an untreated fracture dislocation. He has had a total of 7 surgeries, I believe, on the hand. Most recently, I did a second, third, and fourth carpometacarpal fusion with autogenous distal radius bone graft. The second is not really painful and on the CT scan, it looks like it is healed. The third and fourth look like they have gone on to nonunion and have broken hardware. We discussed risks and benefits. He understood the treatment. He understood very clearly the risk of left hip pain at the site of the bone graft harvest. He also understands the risk of hematoma and wound problems on the hip wound. He would like to proceed with surgery as the pain in the right hand is quite severe. ESTIMATED BLOOD LOSS: 50 mL. COMPLICATIONS: None. FINDINGS: As expected nonunion through the third and fourth carpometacarpal joints. See above and below. DESCRIPTION OF PROCEDURE: Frandy was seen in the preoperative holding area. The correct side, site, and procedure were identified. We came back to the operating room. He was placed on the OR table. The right arm was placed on the hand table, the left hip was placed under the bump and the iliac crest was draped out. The areas were then prepped and draped in the usual fashion. A time-out was performed. I exsanguinated the arm with the Esmarch. The tourniquet was inflated to 250 mmHg. I reopened his dorsal longitudinal incision. I extended it just a bit proximally and distally. Dissection was carried down to the abundant scar tissue , extensor retinaculum was identified. It was reopened over the fourth dorsal compartment. EPL tendon was already transposed. The tendons were mobilized and a [place] drain was placed around them and they were retracted out of the way. I then made a longitudinal incision over the periosteum of the third metacarpal. I raised subperiosteal flaps off the dorsum of the third and fourth carpometacarpal joints exposing both plates. I then removed the third ray plate in standard fashion. It was came out in 2 pieces; it was broken in the middle. I then removed the fourth ray plate in standard fashion. Once the hardware was removed, I went ahead and examined my arthrodesis site. The nonunion sites were debrided. I debrided both carpometacarpal joints, ultimately ended up creating a box shape until I had got back to good bleeding cancellous bone at the capitate, the radial aspect of the hamate, and the base of the third and fourth metacarpals. It did, in fact, look like the second CMC joint was fused. I decided there was too much laxity between the capitate and hamate; this may be contributing to development of the nonunion, so I thought I better fuse that joint to, so I took the bur and I prepared the bony surfaces between the capitate and the hamate. After I prepared the site, I went to the iliac crest and made an oblique 3- or 4 -cm incision. Dissection was carried down through the subcutaneous tissue. The periosteum on the anterior edge of the iliac crest was incised. Full- thickness flaps were raised off the iliac crest. I then took the sagittal saw and I left the inner table intact, but created a cortical cancellous bone graft measuring 2.2 cm x 1 cm. This was completed distally with the curved osteotome. I then harvested quite a bit of cancellous graft to go with my fusion. This wound was then packed with sponges. We went back to the dorsum of the wrist. I then used the sagittal saw to remove the outer table, so I had a nice cortical cancellous graft. I contoured it to the size. I packed whole bunch of cancellous graft all around the area of the fusion, and then I press fit my cortical cancellous block into the area of the CMC joint debridement with the tamp and the mallet. It press fit very nicely and was extremely secure. I then packed the remainder of the graft all around the area. The capital hamate joint was packed with graft. I then selected a 2.0-mm LC-DCP plate off the locking Modular Mini set. This was bent, locking screw was placed proximally and the capitate and then cortical screws were placed distally in compression mode and additional locking screw was placed in the capitate. I took another plate off the Modular Mini set bent it and placed it in location. I put some locking screws in the hamate and cortical screws in the shaft. This compressed things very nicely; it was already very snug after the graft had been press fit in with the cortical surface facing the dorsum of the hand. At this point, everything was looking good. The iliac crest wound, we obtained hemostasis with the Bovie and bone wax on the site of the bone graft harvest. The periosteum was closed with 0 Vicryl sutures. Subcutaneous tissue was reapproximated with 2-0 Vicryl. Skin was closed with 3-0 Monocryl and Steri- Strips. I then covered the plates with the periosteal layer; it was closed with 4- 0 Prolene. This completely covered the plates. The skin was reapproximated with a couple of 3-0 Vicryl sutures and the skin was closed with 3-0 Monocryl and Steri- Strips. Please note I did take a tourniquet holiday on the right arm while we were harvesting the iliac crest graft. After all the wounds were closed, I infiltrated the operative areas with Marcaine. The wounds were dressed with 4x4s, sterile Webril, and then a wrist splint was applied going out to the PIP joint with the hand in the protected position. I used both dorsal and volar slabs of plaster. Tourniquet was then taken down again, hand pinked up immediately. He was woken up and taken to the recovery room in stable condition. [id number]/[facility] #: [id number] [facility] INSANELucy
--- NOTE | 2017-12-17 14:39 | RAD ---
INDICATION: Right hand, M 19.141 COMPARISONS: CT dated December 10, 2017 TECHNIQUE: Fluoroscopy was provided for a surgical procedure. Total fluoroscopy time is: 14 seconds FINDINGS: Spot images demonstrate internal fixation across the second, third, and fourth CMC joints IMPRESSION: FLUOROSCOPY WAS PROVIDED FOR A SURGICAL PROCEDURE CPT II Codes: G9500
== END 2017-12-16 15:04 | disposition home or self-care (01) ==
LOC: OREAST 06:35
PROVIDERS: ATTEND Orthopaedic Surgery Hand Surgery
DX: M96.0 Pseudarthrosis after fusion or arthrodesis (principal); T84.290A Other mechanical complication of internal fixation device of bones of hand and fingers, initial encounter; M19.141 Post-traumatic osteoarthritis, right hand; Y83.1 Surgical operation with implant of artificial internal device as the cause of abnormal reaction of the patient, or of later complication, without mention of misadventure at the time of the procedure; I10 Essential (primary) hypertension; F41.8 Other specified anxiety disorders; Z72.0 Tobacco use
CPT/HCPCS: 76000; 88300; A9270-GY; C1713; C1776; J1100; J1885; J2250; J2405; J2704; J3010

== ENCOUNTER 2018-04-07 10:15 | Emergency (ER) | payer OTHER ==
[2018-04-07 10:33] VITALS: BP 151/78
--- NOTE | 2018-04-07 10:34 | UC ---
Dental HPI - HPI Summary HPI Summary: 27 year old male with tooth complaint. c/o R dental pain that started yesterday with pain radiating up and down area. Has an dentist appt on 04/21. He states his pain is severe at about a 10 out of 10 and did not get any sleep last night. He has been taking Motrin with occasional Tylenol. He has tried a small amount of Anbesol as well. He does have allergy to penicillin but has taken clindamycin previously without any problems. He does smoke and was advised to quit. He does not chew tobacco. - History of Current Complaint Stated Complaint: TOOTH COMP. Time Seen by Provider: 04/07/18 10:32 Hx Obtained From: Patient Onset/Duration: Gradual Onset Severity: Severe - Allergies/Home Medications Allergies/Adverse Reactions: Allergies Allergy/AdvReac Type Severity Reaction Status Date / Time Penicillins Allergy Anaphylatic Verified 04/07/18 10:26 Shock vancomycin Allergy See Comment Verified 04/07/18 10:26 PMH/Surg Hx/FS Hx/Imm Hx Previously Healthy: Yes - Surgical History Surgical History: Yes Surgery Procedure, Year, and Place: Left Wrist Bone Graft 2017; Right Hand Crush [place] Repair x 5 [place] [facility] [place] a [place]. Right ankle with steel plate 11 screws on 04/17/2016 - Family History Known Family History: Positive: Diabetes Negative: Cardiac Disease, Hypertension - Social History Occupation: Unemployed - and injured Alcohol Use: Occasionally Alcohol Amount: beer 1-3 monthly Substance Use Type: None Smoking Status (MU): Light Every Day Tobacco Smoker Type: Cigarettes Amount Used/How Often: 1/2+ PPD Length of Time of Smoking/Using Tobacco: Since Age 18 Have You Smoked in the Last Year: Yes Household Exposure Type: Cigarettes - Immunization History Most Recent Influenza Vaccination: NONE 2017 Most Recent Tetanus Shot: 2014 Review of Systems ENT: Dental Pain Is Patient Immunocompromised?: No All Other Systems Reviewed And Are Negative: Yes Physical Exam Triage Information Reviewed: Yes Appearance: Well-Appearing, No Pain Distress, Well-Nourished Vital Signs Reviewed: Yes Eye Exam: Normal ENT Exam: Normal Dental Exam: Normal Dental: Positive: Percussion Tenderness @, Gross Decay/Caries @, Dental Fracture @, Abscess @. Negative: Cellulitis @, Cervical Lymphadenopathy, Bleeding Neck exam: Normal Neck: Positive: 1 Respiratory Exam: Normal Cardiovascular Exam: Normal Musculoskeletal Exam: Normal Neurological Exam: Normal Psychological Exam: Normal Skin Exam: Normal Dental Complaint Course/Dx - Course Course Of Treatment: At this time with his severity of pain and unable to get comfortable we will offer her a one-time dose of narcotic but will not give this to go home with when he will start his antibiotic shortly and he is advising me his girlfriend will be picking him up as he did not drive here. - Differential Dx/Diagnosis Differential Diagnosis/Dx: Dental Abscess, Dental Caries, Fractured Tooth, Odontogenic Pain, Peridontic Disease, Peritonsillar Abcess Provider Diagnoses: dental abscess. dental pain Discharge - Sign-Out/Discharge Documenting (check all that apply): Patient Departure All imaging exams completed and their final reports reviewed: No Studies - Discharge Plan Condition: Good Disposition: HOME Prescriptions: Clindamycin Cap(NF) [Clindamycin Cap 300 mg Cap(NF)] 300 mg PO Q6H 10 Days #40 cap Patient Education Materials: Dental Abscess (ED) Referrals: Joon Torrez MD [Primary Care Provider] - 4 Days (please follow up with your dentist as planned or earlier if possible ) - Billing Disposition and Condition Condition: GOOD Disposition: Home Images Dental: 1 - tenderness, fractured tooth, poor dentition
[2018-04-07] MEDS: HYDROcodone/ACETAMIN 5-325 MG* 1 TAB PO ONE (10:56)
== END 2018-04-07 10:58 | disposition home or self-care (01) ==
LOC: UCCORT 10:15
DX: K04.7 Periapical abscess without sinus (principal); K08.89 Other specified disorders of teeth and supporting structures; F17.210 Nicotine dependence, cigarettes, uncomplicated; Z88.0 Allergy status to penicillin; Z88.1 Allergy status to other antibiotic agents
CPT/HCPCS: 99212; G0463

== ENCOUNTER 2018-06-28 16:26 | Emergency (ER) | payer OTHER ==
[2018-06-28 17:25] VITALS: BP 166/89
--- NOTE | 2018-06-28 17:45 | UC ---
General HPI - HPI Summary HPI Summary: this am, roused with swelling L cheek but no pain. less swelling now but becoming painful. - History of Current Complaint Chief Complaint: UCSkin Stated Complaint: LFT SIDE FACIAL SWELLING Time Seen by Provider: 06/28/18 17:39 Hx Obtained From: Patient Timing: Constant Pain Intensity: 3 Associated Signs & Symptoms: Negative: Fever, Headache - Allergy/Home Medications Allergies/Adverse Reactions: Allergies Allergy/AdvReac Type Severity Reaction Status Date / Time Penicillins Allergy Anaphylatic Verified 06/28/18 17:26 Shock vancomycin Allergy See Comment Verified 06/28/18 17:26 Home Medications: Home Medications Bupropion XL* [Wellbutrin XL *] 150 mg PO DAILY 06/28/18 [History Confirmed ] Mirtazapine TAB* [Remeron TAB*] 15 mg PO BEDTIME 06/28/18 [History Confirmed ] QUEtiapine TAB* [Seroquel 25 MG TAB*] 25 mg PO BID 06/28/18 [History Confirmed 06/28/18] raNITIdine HCl [Zantac] 150 mg PO DAILY 06/28/18 [History Confirmed 06/28/18] PMH/Surg Hx/FS Hx/Imm Hx - Additional Past Medical History Additional PMH: PTSD - Surgical History Surgical History: Yes Surgery Procedure, Year, and Place: Left Wrist Bone Graft 2016; Right Hand Crush Injury Repair x 5 2010 [facility] – [place]. T&A as a child. Right ankle with steel plate 11 screws on 04/17/2016 - Family History Known Family History: Positive: Diabetes Negative: Cardiac Disease, Hypertension - Social History Alcohol Use: Occasionally Alcohol Amount: beer 1-3 monthly Substance Use Type: None Smoking Status (MU): Light Every Day Tobacco Smoker Type: Cigarettes Amount Used/How Often: 1/2+ PPD Length of Time of Smoking/Using Tobacco: Since Age 18 Have You Smoked in the Last Year: Yes Household Exposure Type: Cigarettes - Immunization History Most Recent Influenza Vaccination: NONE 2016 Most Recent Tetanus Shot: 2014 Vaccination Up to Date: Yes Review of Systems All Other Systems Reviewed And Are Negative: Yes Constitutional: Positive: Negative Skin: Positive: Negative Eyes: Positive: Negative ENT: Positive: Dental Pain - L cheek Respiratory: Positive: Negative Cardiovascular: Positive: Negative Gastrointestinal: Positive: Negative Genitourinary: Positive: Negative Motor: Positive: Negative Neurovascular: Positive: Negative Musculoskeletal: Positive: Negative Neurological: Positive: Negative Psychological: Positive: Negative Is Patient Immunocompromised?: No Physical Exam Triage Information Reviewed: Yes Appearance: Well-Appearing Vital Signs: Initial Vital Signs Temp 98.9 F 06/28/18 17:21 Pulse 99 06/28/18 17:21 Resp 16 06/28/18 17:21 BP 166/89 06/28/18 17:21 Pulse Ox 99 06/28/18 17:21 Vital Signs Reviewed: Yes Eyes: Positive: Conjunctiva Clear ENT: Positive: Pharynx normal, TMs normal, Other - Mild swelling over L cheek.. Negative: Nasal congestion, Nasal drainage Dental: Positive: Percussion Tenderness @ - L upper molars, Gross Decay/Caries @ , Abscess @ - L upper gum but not fluctuant. Neck: Positive: Supple, Nontender, No Lymphadenopathy Respiratory: Positive: Lungs clear, Normal breath sounds Cardiovascular: Positive: RRR, No Murmur Abdomen Description: Positive: Nontender, No Organomegaly, Soft Bowel Sounds: Positive: Present Musculoskeletal: Positive: ROM Intact Neurological: Positive: Alert Psychological: Positive: Age Appropriate Behavior Skin Exam: Normal Skin: Negative: Rashes Course/Dx - Diagnoses Provider Diagnosis: Dental abscess Discharge - Sign-Out/Discharge Documenting (check all that apply): Patient Departure All imaging exams completed and their final reports reviewed: No Studies - Discharge Plan Condition: Stable Disposition: HOME Prescriptions: Clindamycin Cap(NF) [Clindamycin Cap 300 mg Cap(NF)] 300 mg PO TID 10 Days #30 cap Patient Education Materials: Dental Abscess (ED) Referrals: Joon Torrez MD [Primary Care Provider] - Additional Instructions: FOLLOW UP WITH DENTAL SOON POSSIBLE - Billing Disposition and Condition Condition: STABLE Disposition: Home - Attestation Statements Provider Attestation: I was available for consult. This patient was seen by the ANDREAS. The patient was not presented to, seen by, or examined by me. -Lorena
== END 2018-06-28 18:11 | disposition home or self-care (01) ==
LOC: UCCORT 16:26
DX: K04.7 Periapical abscess without sinus (principal); Z88.0 Allergy status to penicillin; Z88.1 Allergy status to other antibiotic agents; F43.10 Post-traumatic stress disorder, unspecified; F17.210 Nicotine dependence, cigarettes, uncomplicated
CPT/HCPCS: 99212; G0463

== ENCOUNTER 2019-05-18 17:32 | Emergency (ER) | payer OTHER ==
[2019-05-18 19:23] VITALS: BP 158/84
--- NOTE | 2019-05-18 19:34 | UC ---
Throat Pain/Nasal [place] HPI - HPI Summary HPI Summary: Patient is a 29-year-old male presenting with nasal congestion, sinus tenderness , postnasal drip, and productive cough 2 weeks. He states his symptoms improved at first but are now worsening over the past week. Patient unsure of fevers but notes chills. Notes right ear pressure. States sinus tenderness radiates up behind his eyes and down into his upper teeth. No shortness of breath on exertion. Denies nausea and vomiting. It's [id number] cough and cold medicines are not helping. Denies history of asthma. - History of Current Complaint Chief Complaint: UCRespiratory Stated Complaint: CONGESTION, COUGH, HEADACHE Hx Obtained From: Patient Onset/Duration: Gradual Onset, Lasting Weeks Severity: Severe Pain Intensity: 7 Pain Scale Used: 0-10 Numeric - Allergies/Home Medications Allergies/Adverse Reactions: Allergies Allergy/AdvReac Type Severity Reaction Status Date / Time Penicillins Allergy Anaphylatic Verified 05/18/19 19:18 Shock vancomycin Allergy See Comment Verified 05/18/19 19:18 Home Medications: Home Medications D-Methorphan/PE/Acetaminophen [Vicks Dayquil Liquicaps] 2 cap PO Q6H PRN [History Confirmed 05/18/19] Ibuprofen TAB* [Advil TAB*] 600 - 800 mg PO Q6H PRN 05/18/19 [History Confirmed 05/18/19] PMH/Surg Hx/FS Hx/Imm Hx Previously Healthy: Yes - Surgical History Surgical History: Yes Surgery Procedure, Year, and Place: Left Wrist Bone Graft 2017; Right Hand Crush Injury Repair x 5 2010 [facility] [place]. T&A as a child. Right ankle with steel plate 11 screws on 04/17/2016 - Family History Known Family History: Positive: Diabetes Negative: Cardiac Disease, Hypertension - Social History Alcohol Use: Occasionally Alcohol Amount: beer 1-3 monthly Substance Use Type: None Smoking Status (MU): Light Every Day Tobacco Smoker Type: Cigarettes Amount Used/How Often: ~1/2 PPD Length of Time of Smoking/Using Tobacco: Since Age 18 Have You Smoked in the Last Year: Yes Household Exposure Type: Cigarettes - Immunization History Most Recent Influenza Vaccination: NONE 2016 Most Recent Tetanus Shot: 2014 Vaccination Up to Date: Yes Review of Systems All Other Systems Reviewed And Are Negative: Yes Constitutional: Positive: Chills, Fatigue. Negative: Fever ENT: Positive: Dental Pain, Sore Throat, Ear Ache - right ear pressure, Nasal Discharge, Sinus Congestion, Sinus Pain/Tenderness Respiratory: Positive: Shortness Of Breath, Cough - Mild productive of green sputum Cardiovascular: Positive: Negative. Negative: Palpitations, Chest Pain Gastrointestinal: Positive: Negative. Negative: Abdominal Pain, Vomiting, Diarrhea, Nausea Genitourinary: Positive: Negative Musculoskeletal: Positive: Negative. Negative: Myalgia Neurological: Positive: Headache Physical Exam Triage Information Reviewed: Yes Appearance: Well-Appearing, No Pain Distress, Well-Nourished Vital Signs: Initial Vital Signs Temp 97.9 F 05/18/19 19:16 Pulse 80 05/18/19 19:16 Resp 18 05/18/19 19:16 BP 158/84 05/18/19 19:16 Pulse Ox 98 05/18/19 19:16 Vital Signs Reviewed: Yes Eyes: Positive: Conjunctiva Clear ENT: Positive: Hearing grossly normal, Pharyngeal erythema, Nasal congestion, Nasal drainage - PND, TMs normal, Sinus tenderness - maxillary sinuses, Uvula midline. Negative: TM bulging, TM dull, TM red, Tonsillar swelling, Tonsillar exudate Neck exam: Normal Neck: Positive: Supple, Nontender, No Lymphadenopathy Respiratory Exam: Normal Respiratory: Positive: Normal breath sounds, No respiratory distress, No accessory muscle use, Wheezing - Faint wheezing noted in left lower lobe, Expiration. Negative: Crackles, Rhonchi, Stridor Cardiovascular Exam: Normal Cardiovascular: Positive: RRR. Negative: Tachycardia Neurological: Positive: Alert Psychological: Positive: Age Appropriate Behavior Diagnostics - Radiology chest xray Radiology Interpretation Completed By: ED Physician Summary of Radiographic Findings: no acute processes Throat Pain/Nasal Course/Dx - Course Course Of Treatment: Discussed initial negative chest xray read with patient and that official report will be obtained tomorrow. I am treating patient with doxy for bacterial sinusitis. Discussed continuing mucinex and nasal sprays orc for symptomatic treatment. Informed he may also use otc analgesics as directed for pain relief. Instructed him to follow up with PCP if symptoms persist or go to the ED if symptoms worsen. Patient voiced understanding and agreed to the treatment plan. Dr. Marinelli also reviewed xrays and agreed to the treatment plan. - Differential Dx/Diagnosis Provider Diagnosis: Bacterial sinusitis Discharge ED - Sign-Out/Discharge Documenting (check all that apply): Patient Departure All imaging exams completed and their final reports reviewed: No - Discharge Plan Condition: Stable Disposition: HOME Prescriptions: DOXYcycline CAP(*) [DOXYcycline 100MG CAP(*)] 100 mg PO BID #19 cap Patient Education Materials: Rhinosinusitis (ED) Referrals: Joon Torrez MD [Primary Care Provider] - If Needed Additional Instructions: As discussed, take Doxycycline as prescribed for the treatment of your bacterial sinusitis. You received the first dose here in the urgent care. Your chest xray was read as normal by the provider who treated you tonight. The official report will be obtained tomorrow and you will be notified of any abnormalities found. You may take Mucinex as directed to help reduce mucus production. You may use an over the counter nasal spray as directed for symptomatic relief. You may take ibuprofen as directed for pain relief. Get plenty of rest and fluids. Return or follow up with your primary care doctor if your symptoms worsen or do not resolve within 7 days. To the emergency room if any of your symptoms worsen including difficulty breathing, fever, nausea, or vomiting. - Billing Disposition and Condition Condition: STABLE Disposition: Home
[2019-05-18] MEDS ORDERED: DOXYcycline CAP(*) 100 MG PO ONE (20:25)
--- NOTE | 2019-05-19 15:06 | UC ---
- Progress Note Progress Note: Final radiologist reading from May 18, 2019 comes back as no infiltrate. Provider interpretation same date is the same therefore there is no discrepancy. Course/Dx - Diagnoses Provider Diagnoses: Bacterial sinusitis Discharge ED - Sign-Out/Discharge Documenting (check all that apply): Patient Departure All imaging exams completed and their final reports reviewed: Yes - Discharge Plan Condition: Stable Disposition: HOME Prescriptions: DOXYcycline CAP(*) [DOXYcycline 100MG CAP(*)] 100 mg PO BID #19 cap Patient Education Materials: Rhinosinusitis (ED) Referrals: Joon Torrez MD [Primary Care Provider] - If Needed Additional Instructions: As discussed, take Doxycycline as prescribed for the treatment of your bacterial sinusitis. You received the first dose here in the urgent care. Your chest xray was read as normal by the provider who treated you tonight. The official report will be obtained tomorrow and you will be notified of any abnormalities found. You may take Mucinex as directed to help reduce mucus production. You may use an over the counter nasal spray as directed for symptomatic relief. You may take ibuprofen as directed for pain relief. Get plenty of rest and fluids. Return or follow up with your primary care doctor if your symptoms worsen or do not resolve within 7 days. To the emergency room if any of your symptoms worsen including difficulty breathing, fever, nausea, or vomiting. - Billing Disposition and Condition Condition: STABLE Disposition: Home
== END 2019-05-18 20:36 | disposition home or self-care (01) ==
LOC: UCCORT 17:32
DX: J32.9 Chronic sinusitis, unspecified (principal); R05 Cough; Z88.1 Allergy status to other antibiotic agents; Z88.0 Allergy status to penicillin; F17.210 Nicotine dependence, cigarettes, uncomplicated
CPT/HCPCS: 71046; 99212; A9270-GY; G0463

== ENCOUNTER 2019-08-29 10:23 | Emergency (ER) | payer OTHER ==
[2019-08-29 11:16] VITALS: BP 143/86
--- NOTE | 2019-08-29 11:36 | UC ---
[facility] HPI - HPI Summary HPI Summary: dental pain x 2 days pain is located at left lower back pain is severe , 8 out 10 , worse with chewing and cold, nothing makes it better no fever, no chills - History of Current Complaint Chief Complaint: UCDentalProblem Stated Complaint: DENTAL COMPLAINT Time Seen by Provider: 08/29/19 11:17 Hx Obtained From: Patient Onset/Duration: Gradual Onset, Lasting Days - 2, Still Present Severity: Severe Pain Intensity: 8 Aggravating Factor(s): Cold, Chewing Alleviating Factor(s): Nothing Related History: Swelling Dental: 1 - pain - Allergies/Home Medications Allergies/Adverse Reactions: Allergies Allergy/AdvReac Type Severity Reaction Status Date / Time Penicillins Allergy Anaphylatic Verified 08/29/19 11:12 Shock topiramate Allergy Altered Verified 08/29/19 11:12 Mental Status vancomycin Allergy See Comment Verified 08/29/19 11:12 PMH/Surg Hx/FS Hx/Imm Hx Psychological History: Post Traumatic Stress Disorder - Surgical History Surgical History: Yes Surgery Procedure, Year, and Place: Left Wrist Bone Graft 2017; Right Hand Crush Injury Repair x 5 2010 [facility] [place]. T&A as a child. Right ankle with steel plate 11 screws on 04/17/2016 - Family History Known Family History: Positive: Diabetes Negative: Cardiac Disease, Hypertension - Social History Alcohol Use: Occasionally Alcohol Amount: beer 1-3 monthly Substance Use Type: None Smoking Status (MU): Light Every Day Tobacco Smoker Type: Cigarettes Amount Used/How Often: 2 cigarettes daily Length of Time of Smoking/Using Tobacco: Since Age 18 Have You Smoked in the Last Year: Yes Household Exposure Type: Cigarettes - Immunization History Most Recent Influenza Vaccination: NONE 2016 Most Recent Tetanus Shot: 2014 Vaccination Up to Date: Yes Review of Systems All Other Systems Reviewed And Are Negative: Yes Is Patient Immunocompromised?: No Physical Exam Triage Information Reviewed: Yes Appearance: Well-Appearing, No Pain Distress, Well-Nourished Vital Signs: Initial Vital Signs Temp 99.0 F 08/29/19 11:11 Pulse 73 08/29/19 11:11 Resp 16 08/29/19 11:11 BP 143/86 08/29/19 11:11 Pulse Ox 97 08/29/19 11:11 Vital Signs Reviewed: Yes Eye Exam: Normal Eyes: Positive: Conjunctiva Clear ENT Exam: Normal ENT: Positive: Normal ENT inspection, Hearing grossly normal Dental: Positive: Percussion Tenderness @ - 17 and 18, Gross Decay/Caries @ - 17 and 18 Neck exam: Normal Neck: Positive: Supple Respiratory: Positive: Chest non-tender, Lungs clear, Normal breath sounds Cardiovascular: Positive: RRR, No Murmur, Pulses Normal Dental Complaint Course/Dx - Differential Dx/Diagnosis Provider Diagnosis: Dental abscess Discharge ED - Sign-Out/Discharge Documenting (check all that apply): Patient Departure All imaging exams completed and their final reports reviewed: No Studies - Discharge Plan Condition: Stable Disposition: HOME Prescriptions: Clindamycin Cap(NF) [Clindamycin Cap 300 mg Cap(NF)] 300 mg PO Q6H #28 cap Naproxen [Naproxen 500 mg tab] 500 mg PO BID #20 tablet Patient Education Materials: Dental Abscess (ED) Referrals: Joon Torrez MD [Primary Care Provider] - If Needed - Billing Disposition and Condition Condition: STABLE Disposition: Home
== END 2019-08-29 11:36 | disposition home or self-care (01) ==
LOC: UCCORT 10:23
DX: K04.7 Periapical abscess without sinus (principal); F17.210 Nicotine dependence, cigarettes, uncomplicated; Z88.1 Allergy status to other antibiotic agents; Z88.8 Allergy status to other drugs, medicaments and biological substances; Z88.0 Allergy status to penicillin
CPT/HCPCS: 99212; G0463